=== PATIENT | male | born 1995 | race Caucasian/White ===

== ENCOUNTER 2024-09-09 12:21 | Emergency (ER) | payer OTHER ==
[~2024-09-09] VITALS: Ht 172.7 cm; Wt 90.7 kg
[2024-09-09] MEDS ORDERED: Diphth,Pertuss(Acell),Tet Vac 0.5 ML VIAL IM ONE (13:50)
== END 2024-09-09 14:22 | disposition home or self-care (01) ==
LOC: ER 12:21
DX: S61.213A Laceration without foreign body of left middle finger without damage to nail, initial encounter (principal); W27.2XXA Contact with scissors, initial encounter; Y99.0 Civilian activity done for income or pay
CPT/HCPCS: 12001; 90471; 90715; 99282-25